=== PATIENT | male | born 1980 | race Two or more races ===

== ENCOUNTER → 2017-03-18 | Outpatient (CLI) | payer OTHER | LOC: BRMIMAGING 15:03 | PROVIDERS: ATTEND Internal Medicine | DX: S93.491A Sprain of other ligament of right ankle, initial encounter (principal); S82.51XA Displaced fracture of medial malleolus of right tibia, initial encounter for closed fracture; X58.XXXA Exposure to other specified factors, initial encounter | CPT/HCPCS: 73610-PO ==

== ENCOUNTER 2017-03-25 17:41 | Emergency (ER) | payer OTHER ==
[2017-03-25 18:12] VITALS: BP 140/78; RESP 20; TEMP 98.2; O2SAT 95
--- NOTE | 2017-03-25 18:44 | EDPHY ---
H & P Stated Complaint: pain in right ankle injured last week. W/C . has not had pain med since 8am Time Seen by Provider: 03/25/17 18:40 HPI/ROS: CHIEF COMPLAINT: Right ankle pain HISTORY OF PRESENT ILLNESS: The patient is a 36-year-old man who sprained his ankle 1 week ago at work. He had it x-rayed and was told he had avulsed a tendon. He followed up with Orthopedics yesterday. They plan to just observe it and 1 him to return in a week. He ran out of pain medicine yesterday. He states that he woke up in severe pain today. He has been taking ibuprofen but it is not been working. He is here requesting a medication refill. REVIEW OF SYSTEMS: Constitutional: denies: chills, fever, recent illness, recent injury EENTM: denies: blurred vision, double vision, nose congestion Respiratory: denies: cough, shortness of breath Cardiac: denies: chest pain, irregular heart rate, lightheadedness, palpitations Gastrointestinal/Abdominal: denies: abdominal pain, diarrhea, nausea, vomiting, blood streaked stools Genitourinary: denies: dysuria, frequency, hematuria, pain Musculoskeletal: See HPI Skin: denies: lesions, rash, jaundice, bruising Neurological: denies: headache, numbness, paresthesia, tingling, dizziness, weakness Hematologic/Lymphatic: denies: blood clots, easy bleeding, easy bruising Immunologic/allergic: denies: HIV/AIDS, transplant EXAM: GENERAL: Well-appearing, well-nourished and in no acute distress. HEAD: Atraumatic, normocephalic. EYES: Pupils equal round and reactive to light, extraocular movements intact, sclera anicteric, conjunctiva are normal. ENT: TMs normal, nares patent, oropharynx clear without exudates. Moist mucous membranes. NECK: Normal range of motion, supple without lymphadenopathy or JVD. LUNGS: Breath sounds clear to auscultation bilaterally and equal. No wheezes rales or rhonchi. HEART: Regular rate and rhythm without murmurs, rubs or gallops. ABDOMEN: Soft, nontender, normoactive bowel sounds. No guarding, no rebound. No masses appreciated. BACK: No CVA tenderness, no spinal tenderness, step-offs or deformities EXTREMITIES: Mild right ankle swelling, normal strength, normal sensation and capillary refill distally NEUROLOGICAL: Cranial nerves II through XII grossly intact. Normal speech, normal gait. 5/5 strength, normal movement in all extremities, normal sensation PSYCH: Normal mood, normal affect. SKIN: Warm, dry, normal turgor, no visible rashes or lesions. Source: Patient Exam Limitations: No limitations - Personal History Current Tetanus/Diphtheria Vaccine: Unsure Current Tetanus Diphtheria and Acellular Pertussis (TDAP): Unsure - Medical/Surgical History Hx Asthma: No Hx Chronic Respiratory Disease: No Hx Diabetes: Yes Hx Cardiac Disease: No Hx Renal Disease: No Hx Cirrhosis: No Hx Alcoholism: No Hx HIV/AIDS: No Hx Splenectomy or Spleen Trauma: No Other PMH: IDDM,HBP, HIGH CHOLESTEROL - Family History Significant Family History: No pertinent family hx - Social History Smoking Status: Current every day smoker Alcohol Use: Sober Drug Use: None Constitutional: Initial Vital Signs Temperature (C) 36.8 C 03/25/17 18:10 Heart Rate 88 03/25/17 18:10 Respiratory Rate 20 03/25/17 18:10 Blood Pressure 140/78 H 03/25/17 18:10 O2 Sat (%) 95 03/25/17 18:10 O2 Delivery Mode Room Air Allergies/Adverse Reactions: No Known Allergies Allergy (Verified 03/25/17 18:13) Home Medications: Medication Instructions Recorded Metformin HCl [Metformin HCl 1000 1,000 mg PO BID 03/09/12 mg] Insulin Regular, Human 03/25/17 Lisinopril 03/25/17 Tryenta 03/25/17 Medical Decision Making ED Course/Re-evaluation: The patient is here essentially requesting a he narcotic refill. I referred him back to the orthopedist he saw yesterday. I discussed with him positive not refilling narcotics. I also recommended he take appropriate doses of ibuprofen and Tylenol. He understands and agrees with this plan. Differential Diagnosis: Partial list of the Differential diagnosis considered include but were not limited to; ankle sprain, ankle fracture, narcotic abuse and although unlikely based on the history and physical exam, I also considered infection, dislocation , vascular injury. I discussed these differential diagnoses and the plan with the patient as well as the usual and expected course. The patient understands that the diagnosis is provisional and that in medicine we are not always correct and that further workup is often warranted. Usual and customary warnings were given. All of the patient's questions were answered. The patient was instructed to return to the emergency department should the symptoms at all worsen or return, otherwise to followup with the physician as we discussed. Departure - Departure Disposition: Home, Routine, Self-Care Clinical Impression: Ankle pain, right Qualifiers: Chronicity: unspecified Qualified Code(s): M25.571 - Pain in right ankle and joints of right foot Condition: Fair Instructions: Ankle Sprain (ED) Referrals: Dakotah Cloud MD [Medical Doctor] - As per Instructions
[2017-03-25 19:15] VITALS: PULSE 90
== END 2017-03-25 18:57 | disposition home or self-care (01) ==
LOC: CED 17:41
DX: M25.571 Pain in right ankle and joints of right foot (principal); F17.200 Nicotine dependence, unspecified, uncomplicated; E11.9 Type 2 diabetes mellitus without complications; Z79.4 Long term (current) use of insulin; Z79.84 Long term (current) use of oral hypoglycemic drugs